=== PATIENT | female | born 1990 | race Caucasian/White ===

== ENCOUNTER 2017-01-29 13:23 | Emergency (ER) | payer OTHER ==
[~2017-01-29] VITALS: Ht 154.9 cm; Wt 54.4 kg
[~2017-01-29 13:23] MED LIST: NAPROSYN500 M1 PO; SKYLA13.5 MG; VISTARIL25 MG PO
--- NOTE | 2017-01-29 14:53 | RADIOLOGY REPORT ---
EXAMINATION: XR ANKLE, LEFT CLINICAL INFORMATION: Lateral left ankle pain and swelling following an injury. COMPARISON: No relevant prior studies are available for comparison. TECHNIQUE: AP, lateral, and mortise views of the left ankle. FINDINGS: No fracture or dislocation. Ankle mortise is well-maintained. No joint space narrowing or marginal osteophytes. No osseous erosion. No abnormal soft tissue calcification. No significant ankle joint effusion. Mild soft tissue swelling over the dorsolateral aspect of the foot. IMPRESSION: Mild soft tissue swelling over the dorsolateral aspect of the foot without associated osseous abnormality.
--- NOTE | 2017-01-29 15:09 | ED UPPER/LOWER EXTREMITY COMPL ---
History of Present Illness General Chief Complaint: Foot or Ankle Injury Stated Complaint: L FOOT INJURY Source: patient Exam Limitations: no limitations Vital Signs & Intake/Output Vital Signs & Intake/Output Vital Signs Date Time Temp Pulse Resp B/P B/P Pulse O2 O2 Flow FiO2 Mean Ox Delivery Rate 01/29 1607 98.2 60 14 118/68 Room Air 01/29 1353 97.7 84 18 127/81 99 Room Air ED Intake and Output 01/30 0000 01/29 1200 Intake Total Output Total Balance Patient 120 lb Weight Weight Reported by Patient Measurement Method Allergies Coded Allergies: NO KNOWN ALLERGIES (04/22/15) Triage Note: C/O PAIN AND SWELLING TO LEFT ANKLE, TOP OF FOOT X 2 DAYS. FELL WHILE WALKING DOWN STAIRS. MISSED A STEP. Triage Nurses Notes Reviewed? yes Onset: Abrupt Duration: day(s): Timing: recent history Severity: moderate Pain/Injury Location: Left: Foot, Ankle. Modifying Factors: Worsens With: movement. : No Patient currently breastfeeds: No HPI: 26-year-old female presents to emergency department complaining of left ankle pain. Patient states that 2 days ago while walking down steps she missed the last step and twisted her left ankle falling backwards onto her hands. She felt immediate pain no pop or click. The following day she noted increased swelling and bruising with pain, pain is worse with ambulation. She has tried Motrin, ice, elevation having the pain is persistent. He denies break in skin, bleeding , knee pain, head trauma, numbness, tingling. (KANDACE NEWMAN PA-C) Past History Travel History Traveled to [place] past 21 day No Medical History Any Pertinent Medical History? 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 No (KANDACE NEWMAN PA-C) Review of Systems Review of Systems Constitutional: Reports: no symptoms. EENTM: Reports: no symptoms. Respiratory: Reports: no symptoms. Cardiovascular: Reports: no symptoms. Gastrointestinal/Abdominal: Reports: no symptoms. Genitourinary: Reports: no symptoms. Musculoskeletal: Reports: see HPI. Skin: Reports: see HPI. Neurological/Psychological: Reports: no symptoms. Hematologic/Endocrine: Reports: no symptoms. Immunological: Reports: no symptoms. All Other Systems: Reviewed and Negative (KANDACE NEWMAN PA-C) Physical Exam Physical Exam General Appearance: well developed/nourished, no apparent distress, alert, awake Head: atraumatic, normal appearance Eyes: Bilateral: normal appearance. Ears, Nose, Throat: hearing grossly normal Neck: normal inspection, supple, full range of motion Cardiovascular/Respiratory: no respiratory distress Peripheral Pulses: 2+ dorsalis pedis (R), 2+ dorsalis pedis (L) Back: normal inspection, normal range of motion Foot Left: normal range of motion, Tenderness over lateral foot, lateral malleolus, and anterior ankle with swelling and ecchymosis Foot Right: normal inspection, normal range of motion Neurologic/Tendon: normal sensation, normal motor functions Skin: ecchymosis over anterior and lateral left ankle and foot (KANDACE NEWMAN PA-C) Progress Differential Diagnosis: contusion, dislocation, fracture, sprain, tendon injury Plan of Care: Orders Procedure Date/time Status URINE 01/29 1402 Complete Laboratory Tests 01/29/17 1406: Urine Test NEGATIVE X-ray today shows no acute fracture. Patient was given an orthopedic follow-up for this week. She was educated on rest, ice, compression, elevation therapy. She will take Tylenol or Motrin as prescribed as needed for pain. Left ankle wrapped in José Miguel wrap. She will return if any worsening symptoms or concerns. The patient is in agreement with the plan of care. Patient was discussed with Dr. Amaya. Patient was seen ambulating while exiting emergency room. (KANDACE NEWMAN PA-C) Diagnostic Imaging: Viewed by Me: Radiology Read. Discussed w/RAD: Radiology Read. Radiology Impression: PATIENT: MICHELLE CEDEÑO PRESENT AGE: 26 PATIENT ACCOUNT NO: [id number] : 92 LOCATION: [facility] ORDERING PHYSICIAN: KANDACE NEWMAN PA-C SERVICE DATE: 01/29/17-140 EXAM TYPE: RAD - XRY- ANKLE 3 OR MORE VIEWS L EXAMINATION: XR ANKLE, LEFT CLINICAL INFORMATION: Lateral left ankle pain and swelling following an injury. COMPARISON: No relevant prior studies are available for comparison. TECHNIQUE: AP, lateral, and mortise views of the left ankle. FINDINGS: No fracture or dislocation. Ankle mortise is well-maintained. No joint space narrowing or marginal osteophytes. No osseous erosion. No abnormal soft tissue calcification. No significant ankle joint effusion. Mild soft tissue swelling over the dorsolateral aspect of the foot. IMPRESSION: Mild soft tissue swelling over the dorsolateral aspect of the foot without associated osseous abnormality. DICTATED BY: CHARY BALDWIN MD DATE/TIME DICTATED:01/29/171431 SERVOMECHANISM DESIGNER:BRADY DATE/TIME TRANSCRIBED:01/29/171431 CONFIDENTIAL, DO NOT COPY WITHOUT APPROPRIATE AUTHORIZATION. <Electronically signed in Other Vendor System> SIGNED BY: CHARY BALDWIN MD 01/29/17 1453, PATIENT: MICHELLE CEDEÑO PRESENT AGE: 26 PATIENT ACCOUNT NO: [id number] : 92 LOCATION: [facility] ORDERING PHYSICIAN: KANDACE NEWMAN PA-C SERVICE DATE: 01/29/17 EXAM TYPE: RAD - XRY-FOOT COMPLETE, LEFT EXAMINATION: XR FOOT, LEFT CLINICAL INFORMATION: Lateral foot pain following a twisting injury. COMPARISON: Left ankle radiographs done earlier the same day. TECHNIQUE: AP, lateral, and oblique views of the left foot. FINDINGS: No fracture. No significant joint space narrowing. No marginal osteophytes. No osseous erosion. No ankle joint effusion. No abnormal soft tissue calcification. IMPRESSION: No fracture or dislocation. DICTATED BY: CHARY BALDWIN MD DATE/TIME DICTATED:01/29/171535 SERVOMECHANISM DESIGNER:ROBERT DATE/TIME TRANSCRIBED:01/29/171535 CONFIDENTIAL, DO NOT COPY WITHOUT APPROPRIATE AUTHORIZATION. <Electronically signed in Other Vendor System> SIGNED BY: CHARY BALDWIN MD 01/29/17 7314 (PATY CONNER,KANDACE) Departure Departure Disposition: HOME OR SELF CARE Condition: Stable Clinical Impression Primary Impression: Left ankle sprain Referrals: NÉSTOR MONCADA,NORAH CHAND MD,UZMA (PCP/Family) Additional Instructions: Rest ankle and elevate. Apply ice, use josé miguel wrap for compression. Take tylenol or motrin as prescribed as needed for pain and swelling. Inform you primary care doctor about your visit here. Follow up with orthopedic Dr. Gayle in 1 week if symptoms persist. Return with worsening symptoms or concerns. Departure Forms: Customer Survey General Discharge Information (KANDACE NEWMAN PA-C) PA/CAMPGROUND CLEANING ATTENDANT Co-Sign Statement Statement: ED Attending supervision documentation- [] I saw and evaluated the patient. I have also reviewed all the pertinent lab results and diagnostic results. I agree with the findings and the plan of care as documented in the PA's/CAMPGROUND CLEANING ATTENDANT's documentation. [x] I have reviewed the ED Record and agree with the PA's/CAMPGROUND CLEANING ATTENDANT's documentation. [] Additions or exceptions (if any) to the PAs/CAMPGROUND CLEANING ATTENDANT's note and plan are summarized below: [] (KENDELL AMAYA DO)
--- NOTE | 2017-01-29 15:44 | RADIOLOGY REPORT ---
EXAMINATION: XR FOOT, LEFT CLINICAL INFORMATION: Lateral foot pain following a twisting injury. COMPARISON: Left ankle radiographs done earlier the same day. TECHNIQUE: AP, lateral, and oblique views of the left foot. FINDINGS: No fracture. No significant joint space narrowing. No marginal osteophytes. No osseous erosion. No ankle joint effusion. No abnormal soft tissue calcification. IMPRESSION: No fracture or dislocation.
[2017-01-29 16:07] VITALS: BP 118/68
== END 2017-01-29 16:09 ==
LOC: ERH 13:23
DX: S93.602A Unspecified sprain of left foot, initial encounter (principal); X50.9XXA Other and unspecified overexertion or strenuous movements or postures, initial encounter; Y93.01 Activity, walking, marching and hiking; Y92.9 Unspecified place or not applicable
CPT/HCPCS: 73610-LT; 73630-LT; 81025

== ENCOUNTER 2017-10-01 13:46 | Emergency (ER) | payer OTHER ==
[~2017-10-01] VITALS: Ht 157.5 cm; Wt 63.5 kg
--- NOTE | 2017-10-01 14:18 | ED INFLUENZA/URI COMPLAINT ---
History of Present Illness General Chief Complaint: Upper Respiratory Sx/Fever Stated Complaint: PER OB FLU SYMPTOMS 37 WEEKS Source: patient Exam Limitations: no limitations Vital Signs & Intake/Output Vital Signs & Intake/Output Vital Signs Date Time Temp Pulse Resp B/P B/P Pulse O2 O2 Flow FiO2 Mean Ox Delivery Rate 10/01 1711 99.1 102 17 123/70 99 Room Air 10/01 1604 100 99 Room Air 10/01 1401 99.3 105 20 110/64 99 Room Air Allergies Coded Allergies: NO KNOWN ALLERGIES (04/22/15) Reconcile Medications Ondansetron HCl (Zofran) 4 MG TABLET 4 MG PO DAILY DIGESTION (Reported) Pantoprazole Sodium 40 MG TABLET.DR 40 MG PO DAILY HEARTBURN (Reported) Pnv72/Iron,Carb&Glu/FA/Dss/Dha (Citranatal 90 Dha Combo Pack) 90 MG IRON-1 MG-50 MG-300 MG COMBO..PKG 90 MG PO DAILY PRE (Reported) Triage Note: PT TO ED FOR COLD LIKE S/S FOR TWO DAYS AND ?FEVER, AFEBRILE IN TRIAGE, 37 WEEKS . Triage Nurses Notes Reviewed? yes Onset: Gradual Duration: constant Timing: recent history Severity: moderate Severity Numbers: 5 : Yes Patient currently breastfeeds: No HPI: Patient is a 26-year-old female who is a approximately 37 weeks who presents emergency room with a 48 hour history of gradual onset of persistent body aches chills nasal congestion fevers who believes she has an upper respiratory infection or flulike symptoms. Patient also is concerned of decreased movements however prior to examination 20 minutes ago she had significant improvement of movements. Patient denies any shortness of breath abdominal pain vaginal bleeding or discharge dysuria hematuria Patient took Tylenol 1000 mg 5 hours ago (Silver Salomon) Past History Travel History Traveled to [place] past 21 day No Medical History Any Pertinent Medical History? 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 No (Silver Salomon) Review of Systems Review of Systems Constitutional: Reports: see HPI, chills, fever. EENTM: Reports: nasal congestion. Respiratory: Reports: see HPI, cough. Cardiovascular: Reports: no symptoms. GI: Reports: see HPI. Denies: abdominal pain. Genitourinary: Reports: no symptoms. Musculoskeletal: Reports: see HPI. Skin: Reports: no symptoms. Neurological/Psychological: Reports: no symptoms. Hematologic/Endocrine: Reports: no symptoms. Immunologic/Allergic: Reports: no symptoms. All Other Systems: Reviewed and Negative (Silver Salomon) Physical Exam Physical Exam General Appearance: no apparent distress, alert, comfortable Head: atraumatic Eyes: Bilateral: normal appearance. Ears, Nose, Throat: normal ENT inspection, moist mucous membrane, hearing grossly normal, Tympanic normal, pharynx normal Neck: normal inspection, supple Respiratory: normal breath sounds, chest non-tender Cardiovascular: tachycardia Peripheral Pulses: 2+ radial (R) Gastrointestinal: normal bowel sounds, soft, non-tender Extremities: normal inspection, normal capillary refill, normal range of motion Neurologic/Psych: no motor/sensory deficits, awake, alert, oriented x 3, normal gait Skin: intact, normal color, warm/dry Core Measures Sepsis Present: No Sepsis Focused Exam Completed? No (Silver Salomon) Progress Differential Diagnosis: influenza, meningitis, neutropenia, otitis, pneumonia, pharyngitis, sinusitis Plan of Care: Orders Procedure Date/time Status URINALYSIS 10/01 1353 Complete RAPID VIRAL INFLUENZA A 10/01 1347 Complete VIRAL CULTURE 10/01 1347 Active Laboratory Tests 10/01/17 1445: Urinalysis MOD H, Urine Color YEL, Urine Clarity HAZY H, Urine pH 7.0, Ur Specific [place] 1.010, Urine Protein NEG, Urine Ketones NEG, Urine Nitrite NEG, Urine Bilirubin NEG, Urine Urobilinogen 1.0, Ur Leukocyte Esterase NEG, Ur Microscopic SEDIMENT EXAMINED, Urine RBC RARE, Urine WBC 1-3 H, Ur Epithelial Cells FEW, Urine Bacteria FEW H, Granular Casts RARE H, Urine Mucus FEW, Urine Hemoglobin NEG, Urine Glucose NEG 10/01/17 1347: Virus Culture Pending Microbiology 10/01 1352 NASOPHARYN: Influenza Virus A & B Rapid Smear - COMP INFLUENZA TYPE A Patient has appropriate movements on transabdominal ultrasound performed by me heart rate noted 150-155 bpm Patient has nontender abdomen no GI or complaints no concerns of distress at this time Patient will receive an official stress BY CBC, CBC ADVISED IV FLUIDS TONES NOTED TO BE 160. IV fluids were given The childbirth nurse did speak with Dr. Sarmiento on multiple occasions and advised patient to receive an total of 2 L of IV fluids in which the repeat stress heart tones were appropriate per Dr. Mujica who advised patient to follow up with CAREER COORDINATOR tomorrow. On discharge patient looks well no apparent distress and will comply discharge instructions and had no questions DR AMAYA WAS AWARE OF PT AND PLAN Initial ED EKG: none (Silver Salomon) Departure Departure Disposition: HOME OR SELF CARE Condition: Stable Clinical Impression Primary Impression: Influenza A Referrals: Patient Has No Primary Care Dr (PCP/Family) Additional Instructions: As discussed continue drinking plenty of water for hydration, continue over-the- counter Tylenol for your symptoms and inflammation and fevers If symptoms worsen or if YOU develop A new concerning symptom return to the emergency room, follow-up tomorrow with CAREER COORDINATOR Begin the prescription of Tamiflu Prescriptions waiting at [facility] Departure Forms: Customer Survey General Discharge Information (Silver Salomon) PA/TRADE EMBALMER Co-Sign Statement Statement: ED Attending supervision documentation- [X] I saw and evaluated the patient. I have also reviewed all the pertinent lab results and diagnostic results. I agree with the findings and the plan of care as documented in the PA's/TRADE EMBALMER's documentation. [] I have reviewed the ED Record and agree with the PA's/TRADE EMBALMER's documentation. [] Additions or exceptions (if any) to the PAs/TRADE EMBALMER's note and plan are summarized below: [] (Philip Amaya DO) (Philip Amaya DO)
[2017-10-01] MEDS ORDERED: [UNRECOGNIZED DRUG - OTHER] PO (14:25)
[2017-10-01] MEDS ORDERED: PANTOPRAZOLE SO40 M1 PO (14:26)
[2017-10-01] MEDS ORDERED: ZOFRAN4 M2 PO (14:28)
[2017-10-01 18:20] VITALS: BP 119/72
== END 2017-10-01 18:21 ==
LOC: ERH 13:46
DX: O99.513 Diseases of the respiratory system complicating pregnancy, third trimester (principal); J10.1 Influenza due to other identified influenza virus with other respiratory manifestations; Z3A.37 37 weeks gestation of pregnancy
CPT/HCPCS: 59025; 81001; 87804; 87804-59

== ENCOUNTER 2017-10-29 03:13 | Inpatient (IN) | payer OTHER ==
[~2017-10-29] VITALS: Ht 154.9 cm; Wt 68.0 kg
[~2017-10-29 03:13] MED LIST changes: +PANTOPRAZOLE SO40 M1 PO; +ZOFRAN4 M2 PO; +[UNRECOGNIZED DRUG - OTHER] PO
[2017-10-29 03:53] LABS: ABSOLUTE BASOPHIL COUNT 0 /CUMM (0.0-0.2); ABSOLUTE EOSINOPHIL COUNT 0 /CUMM (0.0-0.7); ABSOLUTE GRANULOCYTE CT 8.3 /CUMM (1.4-6.5); ABSOLUTE LYMPH COUNT 1.6 /CUMM (1.2-3.4); ABSOLUTE MONOCYTE COUNT 0.9 /CUMM (0.10-0.60); BASOPHIL % 0.2 % (0.0-2.0); EOSINOPHIL % 0.2 % (0-5); HEMATOCRIT 35.1 % (37-47); MEAN CORPUSCULAR HGB 30.9 PG (27.0-31.0); MEAN CORPUSCULAR HGB CONC 33.7 G/DL (33.0-37.0); MEAN CORPUSCULAR VOLUME 91.7 FL (81.0-99.0); PLATELET COUNT 190 /CUMM (130-400); RBC DISTRIBUTION WIDTH 15.9 % (11.5-14.5); RED BLOOD CELL CT 3.83 /CUMM (4.20-5.40); WHITE BLOOD CELL COUNT 10.9 /CUMM (4.8-10.8)
[2017-10-29 05:01] VITALS: BP 124/73
--- NOTE | 2017-10-29 11:22 | History & Physical Pre-Op ---
General Information and HPI History of Present Illness: 26-year-old 1 para 0 at 41-1/2 weeks presents to childbirth center complaining of slow trickle of fluid with a positive amnio sure clear fluid contractions 6-10 minutes apart. Allergies/Medications Allergies: Coded Allergies: NO KNOWN ALLERGIES (NONE 10/29/17) Home Med list Ondansetron HCl (Zofran) 4 MG TABLET 4 MG PO DAILY DIGESTION (Reported) Pantoprazole Sodium 40 MG TABLET.DR 40 MG PO DAILY HEARTBURN (Reported) Pnv72/Iron,Carb&Glu/FA/Dss/Dha (Citranatal 90 Dha Combo Pack) 90 MG IRON-1 MG-50 MG-300 MG COMBO..PKG 90 MG PO DAILY PRE (Reported) Past History Medical History Neurological: NONE EENT: NONE Cardiovascular: NONE Respiratory: NONE Gastrointestinal: NONE Hepatic: NONE Renal: NONE Musculoskeletal: NONE Psychiatric: anxiety Endocrine: NONE Blood Disorders: NONE Cancer(s): NONE 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 Isolation History: Standard Surgical History Pertinent Surgical History: non-contributory Past Family/Social History Psychosocial History Smoking Status: Former Smoker Review of Systems Review of Systems: Patient denies headache visual changes on a muscle aches GI complaints tachycardia -13 point review of systems Exam & Diagnostic Data Last 24 Hrs of Vital Signs/I&O Vital Signs Date Time Temp Pulse Resp B/P B/P Pulse O2 O2 Flow FiO2 Mean Ox Delivery Rate 10/29 0501 124/73 Intake & Output 10/29 1600 10/29 0800 10/29 0000 Intake Total Output Total Balance Patient 150 lb Weight Physical Exam: Pleasant white female HEENT anicteric Lungs clear Estimated weight 3700 g Pelvic 1 cm 90% 0 station posterior vertex clear fluid Extremities negative edema Assessment/Plan Assessment/Plan: Assessment 41 week rupture membranes Plan Pitocin antibiotics observe for pain management including nitrous oxide epidural and narcotics reviewed with patient as well as risks and benefits of Pitocin As Ranked By This Provider Problem List: 1.
--- NOTE | 2017-10-29 20:27 | PN- Obstetrical ---
Subjective Subjective: PT WITH EPIDURAL Objective Last 24 Hrs of Vital Signs/I&O Vital Signs Date Time Temp Pulse Resp B/P B/P Pulse O2 O2 Flow FiO2 Mean Ox Delivery Rate 10/29 0501 124/73 Intake & Output 10/29 1600 10/29 0800 10/29 0000 Intake Total Output Total Balance Patient 150 lb Weight Physical Exam: PE PLEASANT WF IN NAD ABD 3700 EFW Obstetric Exam Dilation (cm): 4 Effacement (%): 90 Station: 0 Membranes: AROM Fluid: clear Multiple Gestation? No Contractions: Q 3 MINUTES Assessment/Plan Assessment/Plan ASSESS 41 WEEK AROM PLAN PITOCIN AMPICILIIN OBSERVE FOR
--- NOTE | 2017-10-30 02:01 | Labor & Delivery Summary ---
Delivery Summary Vaginal Delivery: Vaginal: vertex : : vacuum (BRADYCARDIA) Episiotomy/Lacerations: Type: 30RIGHT MEDIOLATERAL WITH 3RD DEGREE Placenta: Placenta: spontanteous, normal, 3 vessel Anesthesia: block, NITROUS Additional Comments: VACUUM ASSISTED VAGINAL DELIVERY SECONDARY TO BRADYCARDIA.OVER RMLE SUCTIONED WITH BULB.RMLE REPAIRED WITH 30. RECTUM AND CERVIX FREE OF SUTURES.
[2017-10-30 09:12] LABS: ABSOLUTE BASOPHIL COUNT 0 /CUMM (0.0-0.2); ABSOLUTE EOSINOPHIL COUNT 0 /CUMM (0.0-0.7); ABSOLUTE GRANULOCYTE CT 13.5 /CUMM (1.4-6.5); ABSOLUTE LYMPH COUNT 0.9 /CUMM (1.2-3.4); ABSOLUTE MONOCYTE COUNT 1.3 /CUMM (0.10-0.60); BASOPHIL % 0 % (0.0-2.0); EOSINOPHIL % 0 % (0-5); MEAN CORPUSCULAR HGB 31.5 PG (27.0-31.0); MEAN CORPUSCULAR HGB CONC 34.4 G/DL (33.0-37.0); MEAN CORPUSCULAR VOLUME 91.6 FL (81.0-99.0); MEAN PLATELET VOLUME 9.4 FL (7.4-10.4); PLATELET COUNT 173 /CUMM (130-400); RBC DISTRIBUTION WIDTH 16.5 % (11.5-14.5); RED BLOOD CELL CT 3.13 /CUMM (4.20-5.40); WHITE BLOOD CELL COUNT 15.7 /CUMM (4.8-10.8)
[2017-10-30 09:29] LABS: HEMATOCRIT 28.6 % (37-47)
--- NOTE | 2017-10-30 10:03 | PN- Post Delivery/GYN ---
Subjective Subjective: NO COMPLAINTS Objective Last 24 Hrs of Vital Signs/I&O PER CHART Physical Exam: PE THIN WF IN NAD ABD BS SOFT FUNDUS FIRM NT LOCHIAMINIMAL EXT - EDEMA Assessment/Plan Assessment/Plan ASSESS S/P PLAN CHECK CBC
[2017-10-30 10:14] LABS: GRANULOCYTE % 86.3 % (42.2-75.2)
[2017-10-31] MEDS ORDERED: IBUPROFEN800 M1 PO (20:54)
--- NOTE | 2017-11-01 09:12 | PN- Post Delivery/GYN ---
Subjective Subjective: No complaints Objective Last 24 Hrs of Vital Signs/I&O As per paper chart Physical Exam: Thin white female Abdomen soft nontender Fundus firm nontender extremities negative edema negative Homans Assessment/Plan Assessment/Plan Assessment status post Plan discharge home with instructions follow up 6 weeks
== END 2017-11-01 11:05 | DRG 560 ==
LOC: CBCO 03:13 → GNO 04:06
PROVIDERS: Specialist
PROC: 10D07Z6 Extraction of Products of Conception, Vacuum, Via Natural or Artificial Opening (ICD-10-PCS; principal; 2017-10-30)
PROC: 0W8NXZZ Division of Female Perineum, External Approach (ICD-10-PCS; principal; 2017-10-30)
DX: O48.0 Post-term pregnancy (principal); Z3A.41 41 weeks gestation of pregnancy; O76 Abnormality in fetal heart rate and rhythm complicating labor and delivery; Z37.0 Single live birth; Z87.891 Personal history of nicotine dependence
CPT/HCPCS: GNOP; GNOS; 36415; 80307; 81003; 84112; 87086; 88307; G0463; J0290; J1885; J2210; J7120